=== PATIENT | female | born 1960 | race Caucasian/White ===

== ENCOUNTER → 2016-10-01 | Outpatient (CLI) | payer BC ==
[~2016-10-01] MED LIST: CALCIUM CARBON650 M2 PO; COLACE 100100 MG/CAP PO; LINZESS72 MCG PO; MOTRIN 600600 MG/TAB PO; PERCOCET 325 MG1 TA2 PO; SYNTHROID0.125 MG/T PO; SYNTHROID0.137 MG PO; WELLBUTRIN 75MG75 MG PO
== END ==
LOC: MC.RAD 13:00
DX: Z12.31 Encounter for screening mammogram for malignant neoplasm of breast (principal)

== ENCOUNTER 2016-10-18 20:25 | Observation (INO) | payer BC ==
[~2016-10-18] VITALS: Ht 165.1 cm; Wt 62.0 kg
[2016-10-18] MEDS ORDERED: LINZESS72 MCG PO (20:29)
[2016-10-18] MEDS ORDERED: CALCIUM CARBON650 M2 PO (20:30)
[2016-10-18] MEDS ORDERED: WELLBUTRIN 75MG75 MG PO (20:30)
[2016-10-18 20:53] LABS: BASO # 0.1 (0.0-0.2); BASO % 0.3 % (0.0-2.0); EOS # 0.2 (0.0-0.7); EOS % 1.4 % (0-4.0); GRAN # 13.1 (1.4-6.5); GRAN % 81.6 % (42.2-75.2); HEMOGLOBIN 14.5 g/dl (12.5-16.0); LYMPH # 1.5 (1.2-3.4); LYMPH % 9.1 % (20.0-51.0); MEAN CELL VOLUME 85 fl (80.0-100.0); MEAN CORPUSCULAR HEMOGLOBIN 29 pg (27.0-31.0); MEAN CORPUSCULAR HGB CONC 34 g/dl (33.0-37.0); MEAN PLATELET VOLUME 9.1 fl (7.4-10.4); MONO # 1.2 (0.1-0.6); MONO % 7.3 % (1.7-9.3); PLATELET COUNT 231 K/mm3 (130-400); RED BLOOD COUNT 5.04 M/mm3 (4.10-5.30); REDCELL DISTRIBUTION WIDTH-CV 13.4 % (11.5-14.5)
[2016-10-18] MEDS ORDERED: SYNTHROID0.125 MG/T PO (20:59)
[2016-10-18] MEDS ORDERED: SYNTHROID0.137 MG PO (21:00)
[2016-10-18 21:03] LABS: ADJUSTED CALCIUM 8.8 mg/dL (8.4-10.2); ALBUMIN 4.7 gm/dL (3.5-5.0); BILIRUBIN,TOTAL 0.7 mg/dL (0.0-1.0); CALCIUM 9.4 mg/dL (8.4-10.2); CREATININE, serum 0.61 mg/dL (0.52-1.25); POTASSIUM 3.7 mmol/L (3.4-5.0); TOTAL PROTEIN 7.4 gm/dL (6.4-8.2)
[2016-10-18 21:04] LABS: PH 6 (5-8); SQUAMOUS EPITHELIAL None Seen /hpf; URINE APPEARANCE Clear; URINE BACTERIA Rare /hpf; URINE BILIRUBIN Negative (NEGATIVE); URINE BLOOD Negative (NEGATIVE); URINE COLOR Straw; URINE GLUCOSE Negative (NEGATIVE); URINE KETONE Negative (NEGATIVE); URINE RBC 0-2 /hpf; URINE UROBILINOGEN Negative (NEGATIVE); URINE WBC 0-2 /hpf
[2016-10-18 23:14] VITALS: BP 125/75; PULSE 104; TEMP 98.6
[2016-10-19] VITALS (8 sets, daily range): BP systolic 100–122; BP diastolic 52–65; PULSE 68–80; TEMP 98
[2016-10-19] MEDS ORDERED: PERCOCET 325 MG1 TA2 PO (09:45)
[2016-10-19] MEDS ORDERED: COLACE 100100 MG/CAP PO (09:45)
[2016-10-19] MEDS ORDERED: MOTRIN 600600 MG/TAB PO (09:45)
== END 2016-10-19 15:03 | disposition home or self-care (01) ==
LOC: COL.ER 20:25 → SURG 21:51
PROVIDERS: Emergency Medicine
DX: K35.80 Unspecified acute appendicitis (principal); K58.9 Irritable bowel syndrome, unspecified; E89.0 Postprocedural hypothyroidism; Z80.0 Family history of malignant neoplasm of digestive organs; Z90.710 Acquired absence of both cervix and uterus
CPT/HCPCS: G0378; J0690; J1100; J1885; J2250; J2405; J2543; J2550; J2704; J2710; J2765; J3010; J7030; J7050; J7120; Q9967

== ENCOUNTER → 2017-10-04 | Outpatient (CLI) | payer BC | LOC: MC.RAD 10:39 | DX: Z12.31 Encounter for screening mammogram for malignant neoplasm of breast (principal) ==

== ENCOUNTER 2018-09-26 08:45 | Inpatient (IN) | payer BC ==
[~2018-09-26] VITALS: Ht 165.1 cm; Wt 69.0 kg
[2018-10-03] MEDS ORDERED: SYNTHROID 0.10.15 MG PO (09:16)
[2018-10-03] MEDS ORDERED: ASPIRIN 81M81 MG/TA2 PO (09:17)
[2018-10-03] MEDS ORDERED: LINZESS145CAP (09:18)
--- NOTE | 2018-10-03 09:36 | NUR ---
Patient up to room, admission and assessment complete. patient denies any pain. Pt oriented to room, call light within reach. Orders for tele box, no tele boxes available at this time. Will place tele box on patient once a box is available. Pt is A&O, denies chest pain, dizziness, N/V. Pt on room air and ambulates independently. All questions answered. First dose of Sotalol not given yet due to no tele box. Awaiting EKG as well. No other needs at this time.
[2018-10-03 09:47] VITALS: BP 121/75; PULSE 72; TEMP 98
[2018-10-03 09:52] LABS: HEMATOCRIT 43.4 % (37.0-47.0); HEMOGLOBIN 14.1 g/dl (12.5-16.0); MEAN CELL VOLUME 89 fl (80.0-100.0); MEAN CORPUSCULAR HEMOGLOBIN 29 pg (27.0-31.0); MEAN CORPUSCULAR HGB CONC 33 g/dl (33.0-37.0); MEAN PLATELET VOLUME 9.2 fl (7.4-10.4); PLATELET COUNT 239 K/mm3 (130-400); REDCELL DISTRIBUTION WIDTH-CV 13.2 % (11.5-14.5)
[2018-10-03 09:58] LABS: PROTHROMBIN TIME 11.9 SECONDS (9.7-12.8)
[2018-10-03 10:03] LABS: ALBUMIN 4.1 gm/dL (3.5-5.0); BILIRUBIN,TOTAL 0.4 mg/dL (0.0-1.0); CALCIUM 9.2 mg/dL (8.4-10.2); CREATININE, serum 0.6 (0.52-1.25); MAGNESIUM 2.1 mg/dL (1.6-2.3)
--- NOTE | 2018-10-03 11:10 | NUR ---
Patient placed on tele.
--- NOTE | 2018-10-03 11:45 | NUR ---
LAC INT IV started by JANUARY Hendricks. This nurse attempted LFA, unsuccessful. LAC INT patent. patient sitting in bed reading.
[2018-10-03 12:11] VITALS: BP 106/65; PULSE 72; TEMP 98.2
[2018-10-03 15:59] VITALS: BP 100/49; PULSE 83; TEMP 97.9
[2018-10-03 18:56] VITALS: BP 127/62; PULSE 65; TEMP 97.3
--- NOTE | 2018-10-03 18:59 | NUR ---
Report given to JANUARY Drake. Pt sitting on bedside bench, no comnplaints at this time. Uneventful afternoon.
[2018-10-03 19:00] VITALS: BP 94/58; PULSE 62; TEMP 98.1
--- NOTE | 2018-10-03 21:35 | NUR ---
PT RESTING IN BED A+OX4. REPORTS NO PAIN. LUNGS CLEAR. TELE ON- SHOWING NSR. IF TO THE LEFT AC- FLUSHES WELL, NO SWELLING NO REDNESS.NO DIZZINESS. REPORTS NO NEEDS AT THIS TIME. CALL LIGHT IN REACH.
[2018-10-03 23:05] VITALS: BP 97/62; PULSE 55; TEMP 98.2
[2018-10-04 03:43] VITALS: BP 106/62; PULSE 63; TEMP 98.1
--- NOTE | 2018-10-04 04:59 | NUR ---
PT HAD AN UNEVENTFUL NIGHT. NO PIAN. VSS. SLEPT THROUGHOUT NIGHT. TELE ON. TOLERATING SOTALOL. REPORTS NO DIZZINESS. INDEPENDENT IN ROOM. NO NEEDS AT THIS TIME. CALL LIGHT IN REACH
[2018-10-04 06:22] LABS: BASO % 0.4 % (0.0-2.0); EOS # 0.3 (0.0-0.7); EOS % 3.7 % (0-4.0); GRAN # 4.1 (1.4-6.5); GRAN % 59.5 % (42.2-75.2); HEMATOCRIT 44.4 % (37.0-47.0); HEMOGLOBIN 14.4 g/dl (12.5-16.0); LYMPH # 1.9 (1.2-3.4); LYMPH % 28.4 % (20.0-51.0); MEAN CELL VOLUME 89 fl (80.0-100.0); MEAN CORPUSCULAR HEMOGLOBIN 29 pg (27.0-31.0); MEAN CORPUSCULAR HGB CONC 32 g/dl (33.0-37.0); MEAN PLATELET VOLUME 9.6 fl (7.4-10.4); MONO # 0.5 (0.1-0.6); MONO % 7.7 % (1.7-9.3); PLATELET COUNT 256 K/mm3 (130-400); RED BLOOD COUNT 4.98 M/mm3 (4.10-5.30); REDCELL DISTRIBUTION WIDTH-CV 13.4 % (11.5-14.5)
[2018-10-04 06:41] LABS: CALCIUM 9.2 mg/dL (8.4-10.2); CREATININE, serum 0.6 (0.52-1.25); MAGNESIUM 2.2 mg/dL (1.6-2.3); POTASSIUM 4.1 mmol/L (3.4-5.0)
--- NOTE | 2018-10-04 07:11 | NUR ---
REPORT GIVEN TO JANUARY AGUIRRE
[2018-10-04 07:31] VITALS: BP 107/60; PULSE 63; TEMP 97.9
--- NOTE | 2018-10-04 10:22 | NUR ---
Initial visit; patient thanked Access Lead for looking in on her and offering Spiritual Care.
[2018-10-04 11:19] VITALS: BP 90/61; PULSE 60; TEMP 98.1
--- NOTE | 2018-10-04 11:39 | NUR ---
Pt sitting in bed reading upon entry. Pt assessment complete and charted. Pt denies SOB, dizziness, chest pain, palpitations. Pt on room air & ambulating independently in room. C/O of "minor headache", requesting tylenol. Administered PRN per MAY. Pt intermittently using SCDs. LAC INT IV flushes well. Denies other needs at this time. Call light within reach.
--- NOTE | 2018-10-04 15:25 | NUR ---
SW met with patient to discuss discharge planning. Patient lives independently at home with her . Patient's PCP is Dr Diaz and she obtains prescriptions from [facility]. Patient does not use any DME or home health services. Patient does have a DPOA-HC. SW does not anticipate any discharge needs.
[2018-10-04 16:17] VITALS: BP 94/58; PULSE 55; TEMP 97.6
--- NOTE | 2018-10-04 16:18 | NUR ---
Uneventful for day. Pt up to side bench in room reading. Independent and cooperative with cares. Denies complaints.
--- NOTE | 2018-10-04 19:02 | NUR ---
Pt sitting in bed reading, report given to JANUARY Drake. No complaints.
[2018-10-04 19:14] VITALS: BP 99/57; PULSE 62; TEMP 98.1
--- NOTE | 2018-10-04 20:19 | NUR ---
PT RESTING IN BED A+OX4. NO PAIN REPORTED. LEFT ARM IV FLUSHES WELL NO REDNESS NO SWELLING. LUNGS CLEAR. TELE ON- REPORTS NO S/S SINCE SOTALOL STARED. NO SOA. NO DIZZINESS. NO NEEDS AT THIS TIME. CALL LIGHT IN REACH
[2018-10-04 23:34] VITALS: BP 101/50; PULSE 51; TEMP 97.8
[2018-10-05 03:20] VITALS: BP 100/67; BP 87/61; PULSE 53; TEMP 97.5
--- NOTE | 2018-10-05 05:36 | NUR ---
PT HAD AN UNEVENTFUL NIGHT. REPORTED NO PAIN. TELE ON. HYPOTENTION NOTED, BUT INCREASES WHEN SITS UP. NO S/S OF LIGHT HEADEDNESS, NO DIZZINESS, NO CHANGE IN HOW PT FEELS. NO SOA. NO EDEMA. LUNGS CLEAR. LEFT AC IV FLUSHES WELL, NO REDNESS, NO SWELLING. NO NEEDS AT THIS TIME. DAY 3 OF SOTALOL. CALL LIGHT IN REACH
--- NOTE | 2018-10-05 06:03 | NUR ---
PT HAD AN UNEVENTFUL NIGHT. REPORTED NO PAIN. TELE ON. HYPOTENTION NOTED, BUT INCREASES WHEN SITS UP. REPORTS NO DIZZINESS/LIGHT-HEADEDNESS NO SOA. NO EDEMA. LUNGS CLEAR. LEFT AC IV FLUSHES WELL, NO REDNESS, NO SWELLING. NO NEEDS AT THIS TIME. DAY 3 OF SOTALOL. CALL LIGHT IN REACH.
[2018-10-05 06:18] LABS: CALCIUM 8.8 mg/dL (8.4-10.2); CREATININE, serum 0.64 (0.52-1.25); MAGNESIUM 2.1 mg/dL (1.6-2.3); POTASSIUM 4.2 mmol/L (3.4-5.0)
[2018-10-05 06:21] LABS: BASO # 0.1 (0.0-0.2); BASO % 0.7 % (0.0-2.0); EOS # 0.3 (0.0-0.7); EOS % 3.6 % (0-4.0); GRAN # 4.5 (1.4-6.5); GRAN % 60.8 % (42.2-75.2); HEMATOCRIT 44.4 % (37.0-47.0); HEMOGLOBIN 14.2 g/dl (12.5-16.0); MEAN CELL VOLUME 89 fl (80.0-100.0); MEAN CORPUSCULAR HEMOGLOBIN 29 pg (27.0-31.0); MEAN CORPUSCULAR HGB CONC 32 g/dl (33.0-37.0); MEAN PLATELET VOLUME 9.6 fl (7.4-10.4); MONO # 0.6 (0.1-0.6); MONO % 7.5 % (1.7-9.3); PLATELET COUNT 249 K/mm3 (130-400); RED BLOOD COUNT 4.97 M/mm3 (4.10-5.30); REDCELL DISTRIBUTION WIDTH-CV 13.4 % (11.5-14.5)
--- NOTE | 2018-10-05 07:08 | NUR ---
REPORT GIVEN TO JANUARY CLARK
[2018-10-05 07:34] VITALS: BP 86/53; PULSE 60; TEMP 98
[2018-10-05] MEDS ORDERED: BETAPACE 80MG80 MG PO (11:45)
--- NOTE | 2018-10-05 12:00 | NUR ---
PT HAD UNEVENFUL MORNING. WAITING FOR DISCHARGE. NO ISSUES OR CONSERNS VOICED. PT DID TAKE A SHOWER THIS AM.
[2018-10-05 12:03] VITALS: BP 117/78; PULSE 57; TEMP 97.9
--- NOTE | 2018-10-05 13:30 | NUR ---
PT DISCHARGE EDUCATION PROVIDED. QUESTIONS ANSWERED. SINGATURES OBTAINED. IV AND TELE REMOVED.
--- NOTE | 2018-10-05 14:10 | NUR ---
PT LEFT FAMILY AT THIS TIME. DENINED NEED FOR ESCORT OUT.
== END 2018-10-05 14:10 | disposition home or self-care (01) | DRG 310 ==
LOC: MEDICAL 10-03 08:43
PROVIDERS: ADMIT Internal Medicine Cardiovascular Disease
DX: I48.0 Paroxysmal atrial fibrillation (principal); Z79.82 Long term (current) use of aspirin; Z90.710 Acquired absence of both cervix and uterus; Z82.49 Family history of ischemic heart disease and other diseases of the circulatory system

== ENCOUNTER → 2019-01-04 | Outpatient (CLI) | payer BC ==
[~2019-01-04] MED LIST changes: +ASPIRIN 81M81 MG/TA2 PO; +BETAPACE 80MG80 MG PO; +LINZESS145CAP; +SYNTHROID 0.10.15 MG PO
== END ==
LOC: COL.RAD 07:30 → COL.VAS 07:30
DX: I48.0 Paroxysmal atrial fibrillation (principal); I34.0 Nonrheumatic mitral (valve) insufficiency; Z98.890 Other specified postprocedural states; Z86.79 Personal history of other diseases of the circulatory system

== ENCOUNTER → 2019-11-10 | Outpatient (CLI) | payer OTHER | LOC: MC.RAD 10:14 | DX: Z12.31 Encounter for screening mammogram for malignant neoplasm of breast (principal) ==

== ENCOUNTER → 2020-03-01 | Outpatient (CLI) | payer OTHER | LOC: MC.RAD 02-29 07:00 | DX: N63.21 Unspecified lump in the left breast, upper outer quadrant (principal); Z90.710 Acquired absence of both cervix and uterus ==

== ENCOUNTER 2020-04-23 08:02 | Day surgery (SDC) | payer OTHER ==
[~2020-04-23] VITALS: Ht 165.1 cm; Wt 68.8 kg
[~2020-04-23 08:02] MED LIST changes: -LINZESS145CAP; +LINZESS145CAP PO
[2020-04-23 08:21] VITALS: BP 101/82; PULSE 94; TEMP 97.6
[2020-04-23] MEDS ORDERED: WELLBUTRIN XL150 MG PO (08:58)
[2020-04-23 09:45] VITALS: BP 102/69; PULSE 93; TEMP 97.2
--- NOTE | 2020-04-23 09:45 | NUR ---
The patient arrived back to [facility] from the endoscopy [facility] at this time. The patient appears alert and oriented and ambulated from the cart to the recliner in her room with the assistance of two nurses. The patient's post procedure vital signs were started at this time. The patient agrees to try some grape juice and a muffin at this time. Call light is within reach. Will continue to monitor the patient.
[2020-04-23 10:00] VITALS: BP 104/90; PULSE 81
--- NOTE | 2020-04-23 10:00 | NUR ---
The patient appears to be tolerating the food and drink well and denies wanting anything further at this time. Vital signs appear stable. Call light remains within reach. Will continue to monitor the patient.
[2020-04-23 10:15] VITALS: BP 114/71; PULSE 78
--- NOTE | 2020-04-23 10:20 | NUR ---
Discharge instructions were reviewed with the patient at this time. She verbalized understanding and has no questions for the nurse at this time. The patient's IV to her right hand was rmeoved and a pressure dressing was applied to the site. The nurse instructed the patient to get dressed and notify the staff when she is ready to be escorted out.
--- NOTE | 2020-04-23 10:35 | NUR ---
The patient was escorted out via wheelchair to a private vehicle by JANUARY Singh. The patient's belongings and discharge paperwork were sent with her. The patient's is present to drive her home.
== END 2020-04-23 10:35 | disposition home or self-care (01) ==
LOC: SDCO 08:02
DX: Z12.11 Encounter for screening for malignant neoplasm of colon (principal); K57.30 Diverticulosis of large intestine without perforation or abscess without bleeding; Z86.010 Personal history of colon polyps; K58.9 Irritable bowel syndrome, unspecified; I48.91 Unspecified atrial fibrillation; E03.9 Hypothyroidism, unspecified; Z85.828 Personal history of other malignant neoplasm of skin; Z88.1 Allergy status to other antibiotic agents; Z88.8 Allergy status to other drugs, medicaments and biological substances
CPT/HCPCS: G0105; J2704; J7030

== ENCOUNTER → 2020-11-26 | Outpatient (CLI) | payer BC ==
[~2020-11-26] MED LIST changes: +WELLBUTRIN XL150 MG PO
== END ==
LOC: MC.RAD 13:22
DX: Z12.31 Encounter for screening mammogram for malignant neoplasm of breast (principal)

== ENCOUNTER → 2021-11-27 | Outpatient (CLI) | payer BC | LOC: MC.RAD 12:36 | DX: Z12.31 Encounter for screening mammogram for malignant neoplasm of breast (principal) ==

== ENCOUNTER 2023-10-28 08:42 | Day surgery (SDC) | payer BC ==
[~2023-10-28] VITALS: Ht 165.2 cm; Wt 64.0 kg
[~2023-10-28 08:42] MED LIST changes: +ELIQUIS 5MG PO; +GINKGO2 PO; +LOPRESSOR 550 MG/TAB PO; +MULTAQ400 MG PO; +OMEGA-3 1000 MG1 CAP PO; +TRULANCE3 MG PO
[2023-10-28] MEDS ORDERED: LIPITOR 10MG10 MG PO (09:22)
[2023-10-28] MEDS ORDERED: MULTAQ400 MG PO (09:23)
[2023-10-28] MEDS ORDERED: GLUCOSAMIN 500 PO (09:24)
[2023-10-28] MEDS ORDERED: ASPIRIN 81M81 MG/TA2 PO (09:24)
[2023-10-28] MEDS ORDERED: PROBIOTIC BLEN1 EACH PO (09:25)
[2023-10-28 09:26] VITALS: BP 107/78; PULSE 97; TEMP 98.9
[2023-10-28 10:08] VITALS: BP 113/74; PULSE 85
--- NOTE | 2023-10-28 10:08 | NUR ---
Report received from JANUARY Noel.Dressing observed clean,dry,and intact.
--- NOTE | 2023-10-28 10:39 | NUR ---
Dressing to chest obsered clean,dry,and intact.Discharge instructions given to pt.Pt verbalizes understanding.Pt escorted out by JANUARY Trinh.
== END 2023-10-28 10:39 | disposition home or self-care (01) ==
LOC: COL.CAR 08:42
DX: I48.19 Other persistent atrial fibrillation (principal)
CPT/HCPCS: C1764